=== PATIENT | female | born 1965 | race Caucasian/White ===

== ENCOUNTER → 2023-11-27 16:27 | Outpatient (REF) | payer BC, SELFPAY | LOC: WDC 16:27 | PROVIDERS: ATTENDING PHYSICIAN Obstetrics & Gynecology | DX: Z12.31 Encounter for screening mammogram for malignant neoplasm of breast (principal) | CPT/HCPCS: 77063; 77067 ==

== ENCOUNTER → 2024-06-09 06:31 | Day surgery (SDC) | payer BC, SELFPAY | LOC: GI 06:31 | PROVIDERS: ATTENDING PHYSICIAN Internal Medicine | DX: Z12.11 Encounter for screening for malignant neoplasm of colon (principal); K64.8 Other hemorrhoids; K57.30 Diverticulosis of large intestine without perforation or abscess without bleeding; D12.0 Benign neoplasm of cecum; D12.4 Benign neoplasm of descending colon; K62.1 Rectal polyp; K63.5 Polyp of colon | CPT/HCPCS: 45385; 45380; 88305 ==

== ENCOUNTER → 2025-01-15 10:37 | Outpatient (REF) | payer BC, SELFPAY | LOC: WDC 10:37 | PROVIDERS: ATTENDING PHYSICIAN Obstetrics & Gynecology; FAMILY PHYSICIAN Physician Assistant | DX: R92.8 Other abnormal and inconclusive findings on diagnostic imaging of breast (principal) | CPT/HCPCS: 76642; 77062; 77066 ==

== ENCOUNTER 2025-08-02 16:43 | Day surgery (SDC) | payer BC, SELFPAY ==
[2025-07-27 12:56] VITALS: BMI 35.6
[2025-07-27 13:25] LABS: Hematocrit 42.1 % (37.0-47.0); Hemoglobin 14.2 g/dL (12.0-16.0); Mean Corp Hgb Conc. 33.7 g/dL (33.0-37.0); Mean Corpuscular Volume 94.4 fL (81.0-99.0); Nucleated Red Blood Cells % 0 %; Platelet Count 240 10^3/uL (130-400); Red Cell Dist. Width 12.9 % (11.5-14.5)
[2025-07-27 13:31] LABS: INR 1.37; PT 17.0 Sec (11.4-14.6)
[2025-07-27 13:50] LABS: ALT (SGPT) 37 U/L (0-35); AST (SGOT) 35 U/L (14-36); Albumin 4.5 g/dl (3.5-5.0); Alkaline Phosphatase 79 U/L (38-126); Blood Urea Nitrogen 17 mg/dl (7-17); Calcium 9.2 mg/dl (8.4-10.2); Carbon Dioxide 27 mmol/L (22-30); Chloride 102 mmol/L (98-107); Estimated Creatinine Clearance 92 ml/min; Glucose 85 mg/dl (70-99); Magnesium 2.0 mg/dl (1.6-2.3); Potassium 4.2 mmol/L (3.5-5.1); Sodium 136 mmol/L (135-145); Total Protein 7.0 g/dl (6.3-8.2); eGFR > 60.00
--- NOTE | 2025-07-27 13:54 | HPS.HSE ---
Family Physician
-
Family Physician: Heather Damian
Chief Complaint
-
Persistent atrial fibrillation.
History of Present Illness
The patient is a 59 year old hearing impaired female presenting today for persistent atrial fibrillation. The patient reports a history of shortness of breath, palpitations, and elevated heart rates secondary to this diagnosis. She
previously underwent a cardioversion in August 2020 for her arrhythmia. She is on current pharmacological therapy with Diltiazem. She does report compliance with Xarelto for oral anticoagulation. She is interested in pursuing pulmonary vein
isolation for more definitive arrhythmia management. She denies any current complaints today such as chest pain, shortness of breath at rest, nausea, vomiting, diarrhea, lightheadedness, dizziness, sore throat, or fever. She does report a lingering
non-productive cough from a cold 2 weeks ago.
Medical History
Past Medical History
Past Medical History: Reports Other
Additional Past Medical History:
1. Persistent atrial fibrillation, status post cardioversion 08/2020; pharmacological therapy with Diltiazem and oral anticoagulation with Xarelto.
2. Hypertension.
3. Hypercholesterolemia.
4. Atrial septal defect, status post childhood surgical repair.
5. Mild aortic regurgitation.
6. Mild tricuspid regurgitation.
7. Syncope of unclear origin, likely vasovagal.
8. Exercise induced asthma.
9. GERD.
10. Colon polyps.
11. Diverticulosis.
12. Hemorrhoids.
13. Prediabetes.
14. Shingles 02/2021.
15. Obesity, BMI 35.6.
Past Surgical History: Reports Other
Additional Past Surgical History:
1. Cardioversion.
2. Childhood ASD repair.
3. Bilateral knee meniscus repairs.
4. Left ankle ORIF.
5. Right thumb tendon repair.
6. Right thumb cyst excision.
7. Bilateral breast biopsy.
8. Colonoscopy x2.
Social History
Tobacco: Non-smoker
Alcohol: Occasional
Living: Alone (in a 1st floor apartment. )
Family History
Family History: Not pertinent
Allergies / Home Medications
Allergy/Medication List:
Home medications:
1. Acetaminophen 650 mg p.o. every 6 hours as needed.
2. Albuterol sulfate 1 puff inhaled every 4 hours as needed.
3. Atorvastatin 20 mg p.o. daily.
4. Calcium 1 dose p.o. daily.
5. Diltiazem 120 mg p.o. daily.
6. Fish oil 1 dose p.o. daily.
7. Multivitamin 1 tablet p.o. daily.
8. Probiotic 1 dose p.o. daily.
9. Spironolactone 12.5 mg p.o. daily.
10. Xarelto 20 mg p.o. every evening.
Allergies: No known allergies.
Review of Systems
-
A 12 point ROS was completed and negative except as noted: Yes
Physical Exam
Vital Signs
Blood pressure 142/90. Heart rate 75. Respirations 18. Pulse ox 96% on room air.
Height 5 feet, 2 inches. Weight 88.3 kg. BMI 35.6.
Physical Exam
General: Well Developed, Well Nourished and No Apparent Distress
HEENT: NormoCephalic, Moist mucous membranes, Atraumatic, PERRLA and Hearing Impaired
Respiratory: Clear
Cardiac: Irregular Rhythm
GI: Soft, Non Tender, Non Distended and Other (Obese. )
Musculoskeletal: No Edema and Normal Gait & Station
Skin: Warm and Dry
Neuro: AO x 3 and Nonfocal/grossly intact
Laboratory Results
-
07/27/25 13:08
07/27/25 13:08
Laboratory Results
PT 17.0 Sec (11.4-14.6) H 07/27/25 13:08
INR 1.37 07/27/25 13:08
Total Bilirubin 0.4 mg/dl (0.2-1.3) 07/27/25 13:08
AST 35 U/L (14-36) 07/27/25 13:08
ALT 37 U/L (0-35) H 07/27/25 13:08
Alkaline Phosphatase 79 U/L (38-126) 07/27/25 13:08
Magnesium 2.0.
EKG 07/27/2025: Atrial fibrillation. Nonspecific ST and T wave abnormality.
Chest CT 07/27/2025: pending.
Echocardiogram 06/12/2022: Normal size and function with an estimated ejection fraction is 62% by Rocha's method of disc. Mild concentric LVH. Normal diastolic function. Trace mitral regurgitation. Mild aortic insufficiency. Mild tricuspid
regurgitation with estimated pulmonary artery systolic pressures are 29 mmHg. When compared to the most recent echocardiogram from 10/10/2020, there has been no significant change.
Impression/Plan
-
IMPRESSION/PLAN:
1. Persistent atrial fibrillation: The patient is in need of pulmonary vein isolation with Dr. Kirill Pham on 08/02/2025. The benefits and risks of the procedure have been explained to the patient. The patient understands these risks and wishes to
proceed. Should her pre-ablation chest CT rule out a left atrial appendage thrombus, she will not be required to undergo a transesophageal echocardiogram. We will look out for her chest CT result prior to her procedure. She is aware to continue
Eliquis uninterrupted prior to her procedure. She will take no medications the morning of her ablation.
--- NOTE | 2025-07-30 08:30 | W.SUR.PREOP ---
Pre-Operative Surgical Note
-
The patient's pre-ablation chest CT showed partial non-opacification of the left atrial appendage. likely related to incomplete contrast filling; however, it could not definitively rule out a thrombus.
Discussed chest CT result with Dr. Pham.
Upon further review of the chest CT, there appears to be no evidence of clot.
PVI can still proceed as planned on Saturday, 08/02.
Dr. Pham will look at the ADAM with intracardiac U/S before transeptal.
[2025-08-02] VITALS (17 sets, daily range): BP systolic 117–158; BP diastolic 70–106; BMI 33.3
[2025-08-02 15:01] LABS: ACT-LR - POC 310 Seconds (116-155)
[2025-08-02 15:23] LABS: ACT-LR - POC 298 Seconds (116-155)
--- NOTE | 2025-08-02 15:23 | ITS.CL.ABL ---
[employer] - Ablation
Ablation
Procedure Report:
ELECTROPHYSIOLOGY ABLATION STUDY
DATE:: 08/02/2025�����������������������������REFERRING: Dr. Cristal Fitzgerald
INDICATION: Paroxysmal supraventricular tachycardia in the form of atrial fibrillation.��Prior history of surgical ASD repair in childhood
HISTORY: See H and P.��As above
ANTIARRHYTHMIC DRUG: As above
PRE-PROCEDURE BRISSA: Intracardiac ultrasound demonstrated a likely stitch repair of the secundum ASD with no apparent pericardial patch although details of procedure are unknown
PRESENTING RHYTHM: Atrial fibrillation
'TIME-OUT':��called and confirmed.
SEDATION/ANESTHESIA:��provided via the anesthesia department using general anesthesia (LMA).
INTRAVENOUS/ARTERIAL ACCESS:
Right femoral venous -8Fr
Left femoral venous - 8 Fr, 6 Fr
[id number] suture bilaterally
Ultrasound guidance for bilateral femoral vein access was utilized by me to obtain access with demonstration of normal anatomy
CHADS-VASC Score:
HAS-Bled Score
PROCEDURE:
1.��A decapolar CS catheter was placed within the CS for mapping and pacing.��This was also used as the reference catheter for the 3-D map.
2. The intracardiac ultrasound catheter was positioned in the RA to identify the FO for targeting of transseptal puncture, assist��in identification of the pulmonary vein ostia, monitoring pre and post ablation pulmonary vein flow velocities,
monitoring for 'bubble' formation during RF application as a sign of thermal injury,��and to monitor for pericardial effusion during mapping and ablation procedure.���Left atrial size, LV ejection fraction, and pulmonary vein flows were monitored
pre and post ablation procedure. The other valves were inspected and found to be free of significant regurgitation or stenosis. There was significant thickening and calcification of the superior interatrial fossa but a more thin membrane more
inferiorly and anteriorly and this was utilized for transseptal puncture. Intracardiac ultrasound demonstrated likely a stitch or [id number] suture repair of an ASD without a clear pericardial patch present. Details of surgical procedure are
unknown. There was no thrombus in the left atrial appendage prior to transseptal.
3.��Half of the calculated heparin bolus was administered prior to the first transeptal puncture.��Transseptal puncture was performed to diagnose RA and LA pressure so that safety of LA mapping and ablation could be further assessed, and to access
the left atrium and pulmonary veins for mapping and ablation.��This entailed advancing an 16.8 Romanian RF wire, sheath with dilator into the superior vena cava and withdrawing both (monitoring intracardiac ultrasound, fluoroscopy and tip pressure)
with the tip oriented toward the atrial septum.��The fossa ovalis was engaged (indicated by sudden displacement of the sheath tip as well as tenting of the fossa seen on intracardiac ultrasound).��Left atrial access required a pass with the
Brockenbrough needle extended.��Left atrial catheter position was confirmed by pressure monitoring (RA mean pressure 4 mm Hg and LA mean presure 14 mm Hg), LA saturation (99%),��as well as fluoroscopy.��The sheath was advanced over the dilator and
positioned in the left atrium.��The remainder of the calculated heparin bolus was administered and heparin was
infused to maintain ACT at 300 -350 seconds throughout the case.
4.��RA pacing was performed via the proximal decapolar poles and LA pacing was performed via the distal decapolar poles.
5. A quadrapolar catheter was first positioned at the His position for His Bundle recording which was tagged via the 3-D Navex sytem, and then passed to the RVA for RV pacing and recording.
6. The Penta spline and grid were placed in each of the LIPV, LSPV, RSPV and the RIPV.��
7.��Next, a 3-D map was created using Navex.���A 3-D reconstructed CT image was compared to the 3-D Navex map to assist in anatomic interpretation, mapping and ablation.��The CT image and the NavX image were fused.
8. A total of 57 lesions were given in olive basket and flower pose. Wilmore and basket pose were given to each of the 4 pulmonary veins with entrance block confirmed. Atrial fibrillation persisted and then in flower pose roof posterior wall and
floor lines were created in the posterior wall rendering entrance block in the left atrial posterior wall. Atrial fibrillation persisted and we cardioverted the patient to sinus rhythm confirming entrance and exit block in all 4 pulmonary veins
plus the posterior wall. Additional lesions were given on the inferoseptal region outside the right inferior pulmonary vein rendering all these areas electrically silent. We then performed right and left atrial stimulation down to refractoriness
given the patient's prior history of cardiac surgery and the patient was noninducible for any other tachyarrhythmia post ablation as above.
9. Normal sinus node and AV node function noted.
TOTAL FLOURO TIME: 16.1 minutes 183 mGy
TOTAL RF DURATION: 0 minutes
REVERSAL OF HEPARIN: 35 mg of protamine, slow IV administration
COMPLICATIONS:
None
Intracardiac US shows no pericardial effusion post ablation.
SUMMARY:��
Complex left atrial mapping and ablation.
Isolation of all 4 pulmonary veins as well as the left atrial roof posterior wall and floor of the left atrium.
RECOMMENDATIONS:
1. Ambulate in 4 hours
2. Resume anticoagulation
3.� Can consider same-day discharge at 7:15 PM today if she meets all same-day discharge criteria otherwise anticipate discharge on 08/03 if she does not meet discharge criteria.
4.��Continue current medications
Copy to: Dr. Cristal Fitzgerald
--- NOTE | 2025-08-02 19:06 | PTCARENOTE ---
~1700: Handoff report received from CCL. Pt AOx4, NSR 90, SBP 120s, RA satting 96%. Pt denies pain at this time. B/L groin figure of [address], L dressing CDI and soft. R groin dressing oozing, manual pressure applied, site soft. Patient bedrest
until around 1999, Figure of 8 sutures can be removed around 1930 per protocol. Patient verbalizes understanding of mobility restrictions. Purewick in place, patient DTV. +2 DP pulses noted. Pt oriented to room and call goode system. All needs met at
this time, call goode within reach.
~[id number]: R groin dressing changed, figure of 8 sutures remain intact. New dressing CDI, site soft. Patient voided about 600cc with purewick. VSS. All needs met at this time, call goode within reach. Patient to be DC later tonight onces figure of 8
sutures are removed. Handoff report given to nightshift RN.
[2025-08-02] MEDS: ANESTHETIC LOZENGE 1 LOZENGE PO (20:54)
--- NOTE | 2025-08-02 23:06 | PTCARENOTE ---
Addendum entered by Angela Jordan RN 08/02/25 23:53:
discharge instruction provided, IV and monitor removed. B/L groin without hematoma or bruising or oozing. Dsg CDI. Pt's friend here for transport pt home. Pt ambulates independently
Addendum entered by Angela Jordan RN 08/02/25 23:10:
NSR with frequent PACs
Original Note:
figure of 8 removed b/l groin. Pt OOB Groin dsg CDI
[2025-08-02] MEDS: XARELTO 20 MG PO (23:16)
--- NOTE | 2025-08-03 09:58 | CM ---
pt indep, lives alone in a 2 story home. no dc planning needs noted. pt dc'ed to home
== END 2025-08-02 23:50 | disposition home or self-care (01) ==
LOC: SDS 16:43
PROVIDERS: ATTENDING PHYSICIAN Internal Medicine Cardiovascular Disease; FAMILY PHYSICIAN Physician Assistant; OTHER PHYSICIAN Internal Medicine Interventional Cardiology
DX: I48.19 Other persistent atrial fibrillation (principal); I47.10 Supraventricular tachycardia, unspecified; Z79.01 Long term (current) use of anticoagulants; I10 Essential (primary) hypertension; E78.00 Pure hypercholesterolemia, unspecified; I08.2 Rheumatic disorders of both aortic and tricuspid valves; Z87.74 Personal history of (corrected) congenital malformations of heart and circulatory system; E66.9 Obesity, unspecified; Z68.35 Body mass index [BMI] 35.0-35.9, adult
CPT/HCPCS: 36415; 75572; 80053; 83735; 85025; 85347; 85610; 86850; 86900; 86901; 93005; 93656; 93657; C1730; C1732; C1733; C1759; C1766; C1769; C1892; C1894; Q9967